=== PATIENT | female | born 1985 | race Caucasian/White ===

== ENCOUNTER 2021-02-19 11:11 | Emergency (ER) | payer OTHER ==
[~2021-02-19] VITALS: Ht 170.2 cm; Wt 88.5 kg
[2021-02-19 12:27] LABS: Source, Urine Clean Catch
[2021-02-19 12:33] LABS: Appearance, Urine Hazy (Clear); Blood, Urine 5+ (Neg); Color, Urine Amber (P-Yellow); Glucose Qualitative, Urine Neg (Neg); Ketones, Urine 3+ (Neg); Leukocyte Esterase, Urine 3+ (Neg); Nitrite, Urine Pos (Neg); Protein, Urine 3+ (Neg); Urobilinogen, Urine 2+ (Normal)
[2021-02-19 12:45] LABS: Bilirubin, Urine 2+ (Neg); White Blood Cells, Urine TNTC /hpf (0-5)
[2021-02-19 12:46] LABS: Bacteria Many /hpf; Red Blood Cells, Urine 25-50 /hpf (0-2); Squamous Epithelial Cells Few /hpf (Few)
[2021-02-19] MEDS ORDERED: CEPH500 PO (13:09)
== END 2021-02-19 13:23 | disposition home or self-care (01) ==
LOC: ER 11:11
PROVIDERS: Physician Assistant
DX: N39.0 Urinary tract infection, site not specified (principal); F17.200 Nicotine dependence, unspecified, uncomplicated
CPT/HCPCS: 81001; 81025; 87077; 87086; 87186; 96372; 99283-25; J0696